=== PATIENT | male | born 1960 | race African-American/Black ===

== ENCOUNTER 2024-04-19 07:20 | Day surgery (SDC) | payer BC ==
[2024-04-16 13:18] VITALS: BMI 30.6
[2024-04-19 09:30] VITALS: TEMP 97.3
[2024-04-19 09:31] VITALS: BP 108/61; PULSE 60; RESP 19
== END 2024-04-19 09:35 | disposition home or self-care (01) ==
LOC: FASU-ENDO 07:20
PROVIDERS: ATTEND Internal Medicine Gastroenterology
PROC: 0DBP8ZX Excision of Rectum, Via Natural or Artificial Opening Endoscopic, Diagnostic (ICD-10-PCS; 2024-04-19)
PROC: 0DBC8ZX Excision of Ileocecal Valve, Via Natural or Artificial Opening Endoscopic, Diagnostic (ICD-10-PCS; principal; 2024-04-19 08:47)
DX: Z12.11 Encounter for screening for malignant neoplasm of colon (principal); D12.0 Benign neoplasm of cecum; D12.8 Benign neoplasm of rectum; Z86.010 Personal history of colon polyps
CPT/HCPCS: 88305-TC